=== PATIENT | male | born 1980 | race Hispanic/Latino ===

== ENCOUNTER 2018-11-13 12:50 | Emergency (ER) | payer SELFPAY | END 2018-11-13 15:36 | disposition home or self-care (01) | LOC: ERS 12:50 | DX: J20.9 Acute bronchitis, unspecified (principal); I10 Essential (primary) hypertension; F43.10 Post-traumatic stress disorder, unspecified; F41.9 Anxiety disorder, unspecified; Z79.899 Other long term (current) drug therapy | CPT/HCPCS: 94640; J7620 ==